=== PATIENT | female | born 1950 | race Hispanic/Latino ===

== ENCOUNTER 2022-03-06 09:38 | Outpatient (CLI) | payer MEDICARE | END 2022-03-06 09:39 | disposition home or self-care (01) | LOC: CSHMAMMO 09:38 | PROVIDERS: ATTEND Family Medicine Sports Medicine | DX: Z12.31 Encounter for screening mammogram for malignant neoplasm of breast (principal); Z13.820 Encounter for screening for osteoporosis; Z78.0 Asymptomatic menopausal state; Z80.3 Family history of malignant neoplasm of breast | CPT/HCPCS: 77063; 77067; 77080 ==

== ENCOUNTER 2022-03-13 12:55 | Outpatient (CLI) | payer MEDICARE ==
[~2022-03-13 12:55] MED LIST: Iopamidol 370 76% 100 ML VIAL ONE
== END 2022-03-13 12:56 | disposition home or self-care (01) ==
LOC: CSHCT 12:55
PROVIDERS: ATTEND Psychiatry & Neurology Neurology
DX: I63.9 Cerebral infarction, unspecified (principal); I77.9 Disorder of arteries and arterioles, unspecified
CPT/HCPCS: 70496; 70498; 82565; Q9967

== ENCOUNTER 2022-07-09 20:34 | Emergency (ER) | payer MEDICARE ==
[2022-07-09 21:02] LABS: Hemoglobin 12.8 g/dL (12.0-15.5); MDiff Complete? YES; Mean Corpuscular HGB CONC 31.9 g/dL (32.0-36.0); Mean Corpuscular Hemoglobin 28.6 pg (27.0-33.0); Mean Corpuscular Volume 89.7 fl (81.6-98.3); Mean Platelet Volume 9.1 fl (7.4-10.4); Platelet Count 307 10x3/uL (150-450); RBC Distribution Width 14.8 % (11.5-14.5); Red Blood Cell (RBC) Count 4.47 10x6/uL (3.90-5.03); White Blood Cell (WBC) Count 20.1 10x3/uL (3.5-10.5)
[2022-07-09 21:03] LABS: Platelet Morphology Comment Appears Adequate
[2022-07-09 21:13] LABS: ALT (SGPT) 27 U/L (8-55); AST (SGOT) 34 U/L (5-34); Albumin 3.8 g/dL (3.4-4.8); Alkaline Phosphatase 177 U/L (40-110); Anion Gap 19 mmol/L (10-20); BUN (Urea Nitrogen) 13 mg/dL (9.8-20.1); Bilirubin, Total 0.5 mg/dL (0.2-1.2); Calc. Creatinine Clearance 0 mL/min (70-130); Calcium 8.9 mg/dL (7.8-10.44); Carbon Dioxide 26 mmol/L (23-31); Chloride 98 mmol/L (98-107); Estimated GFR 64; Globulin 3.3 g/dL (2.4-3.5); Glucose 125 mg/dL (83-110); Potassium 4.9 mmol/L (3.5-5.1); Protein, Total 7.1 g/dL (5.8-8.1); Sodium 138 mmol/L (136-145)
[2022-07-09 21:38] LABS: Band 1 % (5-11); Eosinophils 1 % (0-10); Lymphocytes 5 % (21-51); Monocytes 9 % (0-10); Neutrophil 83 % (42-75); Reactive Lymphocytes 1 % (0-10)
[2022-07-09 21:39] LABS: SARS-CoV-2 NAA Rapid Test Not Detected (NotDetected)
[2022-07-09] MEDS ORDERED: cefTRIAXone\\ROCEPHIN 2 GM VIAL ONE (21:43)
[2022-07-09 21:51] LABS: Actual Bicarbonate (HCO3v) 28 mEq/L (22-28); Base Excess 2.1 mEq/L (-2.0 to +3.0); Calcium, Ionized (venous) 1.08 mmol/L (1.16-1.32); Chloride (VBG) 98 mmol/L (98-106); Hemoglobin (Hb) 12.8 g/dL (11.7-16.1); Potassium (VBG) 4.49 mmol/L (3.70-5.30); Puncture Site Other Site; Sodium 135.6 mmol/L (133-146); pH (venous) 7.37 (7.32-7.43)
[2022-07-09] MEDS ORDERED: Morphine 2 MG/ML VIAL ONE (21:54)
[2022-07-09] MEDS ORDERED: Azithromycin 500 MG VIAL ONE (22:15)
[2022-07-09] MEDS ORDERED: Furosemide 40 MG/4 ML VIAL ONE (22:57)
[2022-07-10 00:18] LABS: Bilirubin Neg (Negative); Blood, Urine 10 (Negative); Glucose, Urine (Dipstick) Normal (Negative); Ketone, Urine Negative (Negative); Leukocyte 25 (Negative); Nitrite Negative (Negative); Protein, Urine (Dipstick) Negative (Neg-Trace); Specific Gravity, Urine 1.005 (1.002-1.036); Urobilinogen Normal mg/dL (Less than 2)
[2022-07-10 00:25] LABS: Bacteria/HPF Rare-Few HPF (None Seen); RBC/HPF 0-3 HPF (0-3)
[2022-07-10 00:31] LABS: Clarity Clear (Clear)
== END 2022-07-10 00:30 | disposition short-term general hospital (02) ==
LOC: CSHERS 20:34
DX: I50.9 Heart failure, unspecified (principal); I48.91 Unspecified atrial fibrillation; E11.9 Type 2 diabetes mellitus without complications; Z86.73 Personal history of transient ischemic attack (TIA), and cerebral infarction without residual deficits; Z20.822 Contact with and (suspected) exposure to COVID-19
CPT/HCPCS: 36415; 71045; 80053; 80162; 81003; 81015; 82805; 83605; 83880; 84484; 85025; 87040; 87077; 87086; 87186; 93005; 96374; 96375; J0456; J0696; J1940; J2270; U0002

== ENCOUNTER 2022-09-04 10:41 | Outpatient (CLI) | payer BC, MEDICARE | END 2022-09-04 10:42 | disposition home or self-care (01) | LOC: CSHRAD 10:41 | PROVIDERS: ATTEND Internal Medicine Gastroenterology | DX: K52.9 Noninfective gastroenteritis and colitis, unspecified (principal) | CPT/HCPCS: 74019 ==

== ENCOUNTER 2022-10-23 08:10 | Outpatient (CLI) | payer MEDICARE ==
[2022-10-23] MEDS ORDERED: Iopamidol 370 76% 100 ML VIAL ONE (15:39)
== END 2022-10-23 08:11 | disposition home or self-care (01) ==
LOC: CSHCT 08:10
PROVIDERS: ATTEND Psychiatry & Neurology Neurology
DX: I63.9 Cerebral infarction, unspecified (principal); I69.398 Other sequelae of cerebral infarction; G93.89 Other specified disorders of brain; I77.89 Other specified disorders of arteries and arterioles
CPT/HCPCS: 70496; 70498; 82565; Q9967

== ENCOUNTER 2023-12-04 08:45 | Outpatient (CLI) | payer MEDICARE | END 2023-12-04 08:46 | disposition home or self-care (01) | LOC: CSHMAMMO 08:45 | PROVIDERS: ATTEND Physician Assistant | DX: Z12.31 Encounter for screening mammogram for malignant neoplasm of breast (principal); Z80.3 Family history of malignant neoplasm of breast | CPT/HCPCS: 77063; 77067 ==

== ENCOUNTER 2024-06-02 12:16 | Emergency (ER) | payer MEDICARE ==
[~2024-06-02 12:16] MED LIST changes: +Iopamidol 300 61% 100 ML VIAL FS ONE; -Iopamidol 370 76% 100 ML VIAL ONE
[2024-06-02 13:35] LABS: #Basophils 0.03 10x3/uL (0.0-0.2); #Eosinphils 0.15 10x3/uL (0.0-0.5); #Neutrophils 5.47 10x3/uL (1.5-8.4); %Basophils 0.4 % (0.0-2.0); %Eosinophils 1.8 % (0.0-6.0); %Lymphocytes 19.8 % (18.0-47.0); %Neutrophils 65.8 % (40.0-75.0); Chloride 98 mmol/L (98-107); Hematocrit 42.2 % (34.9-44.5); Hemoglobin 13.4 g/dL (12.0-15.5); Mean Corpuscular HGB CONC 31.8 g/dL (32.0-36.0); Mean Corpuscular Hemoglobin 28.9 pg (27.0-33.0); Mean Corpuscular Volume 90.9 fL (81.6-98.3); Mean Platelet Volume 9.5 fL (7.4-10.4); Platelet Count 231 10x3/uL (150-450); Potassium 4.8 mmol/L (3.5-5.1); RBC Distribution Width 15.5 % (11.5-14.5); Red Blood Cell (RBC) Count 4.64 10x6/uL (3.90-5.03); Sodium 138 mmol/L (136-145); White Blood Cell (WBC) Count 8.3 10x3/uL (3.5-10.5)
[2024-06-02 13:47] LABS: Troponin I Less than 0.010 ng/mL (< 0.028)
[2024-06-02 14:05] LABS: ALT (SGPT) 14 U/L (8-55); AST (SGOT) 23 U/L (5-34); Albumin 3.2 g/dL (3.4-4.8); Alkaline Phosphatase 159 U/L (40-110); Anion Gap 19 mmol/L (10-20); BUN (Urea Nitrogen) 21 mg/dL (9.8-20.1); Bilirubin, Total 0.6 mg/dL (0.2-1.2); Calc. Creatinine Clearance 0 mL/min (70-130); Calcium 8.8 mg/dL (7.8-10.44); Carbon Dioxide 26 mmol/L (23-31); Estimated GFR 31; Glucose 104 mg/dL (83-110); Lipase 25 U/L (8-78); Magnesium 2.7 mg/dL (1.6-2.6); Protein, Total 6.2 g/dL (5.8-8.1)
[2024-06-02 14:42] LABS: Influenza A by NAA Not Detected (NotDetected); Influenza B by NAA Not Detected (NotDetected); SARS-CoV-2 NAA Rapid Test Not Detected (NotDetected)
[2024-06-02 18:54] LABS: Bilirubin Neg (Negative); Blood, Urine 10 (Negative); Glucose, Urine (Dipstick) Normal (Negative); Ketone, Urine 5 mg/dL (Negative); Leukocyte 100 (Negative); Nitrite Positive (Negative); Protein, Urine (Dipstick) Negative (Neg-Trace); Specific Gravity, Urine 1.005 (1.005-1.030); Urobilinogen Normal mg/dL (Less than 2); pH, Urine 6.5 (5.0-9.0)
[2024-06-02 18:57] LABS: Clarity Hazy (Clear)
[2024-06-02 19:01] LABS: CAUTI Indications for Culture Dysuria,urgency,freq; Squamous Epithelial 0-3 HPF (0-3)
[2024-06-02 19:02] LABS: Bacteria/HPF 3+ HPF (None Seen)
[2024-06-02 19:08] LABS: WBC/HPF 21-50 HPF (0-3)
[2024-06-02 19:10] LABS: Urine Culture Reflex Yes Yes
[2024-06-02] MEDS ORDERED: cefTRIAXone (ROCEPHIN) 1 GM VIAL ONE (19:29)
[2024-06-03 05:22] LABS: Campy jejuni + coli by PCR Negative (Negative); STEC Shiga Toxin 1+2 Negative (Negative); Salmonella spp. by PCR Negative (Negative); Shigella spp + EIEC by PCR Negative (Negative)
== END 2024-06-02 20:22 | disposition home or self-care (01) ==
LOC: CSHERS 12:16
DX: N39.0 Urinary tract infection, site not specified (principal); R19.7 Diarrhea, unspecified; E11.9 Type 2 diabetes mellitus without complications; I50.9 Heart failure, unspecified; I48.91 Unspecified atrial fibrillation; I11.0 Hypertensive heart disease with heart failure; Z86.73 Personal history of transient ischemic attack (TIA), and cerebral infarction without residual deficits; Z79.82 Long term (current) use of aspirin; Z79.899 Other long term (current) drug therapy; Z79.01 Long term (current) use of anticoagulants
CPT/HCPCS: 0240U; 70450; 71045; 74177; 80053; 81001; 83690; 83735; 83880; 84484; 85025; 87086; 87324; 87449; 87505; 93005; J0696; 87077; 87186; 96374; Q9967

== ENCOUNTER 2024-08-03 08:20 | Outpatient (CLI) | payer MEDICARE | END 2024-08-03 08:21 | disposition home or self-care (01) | LOC: CSHULT 08:20 | PROVIDERS: ATTEND Physician Assistant | DX: R32 Unspecified urinary incontinence (principal) | CPT/HCPCS: 76856 ==

== ENCOUNTER 2024-12-23 14:06 | Outpatient (CLI) | payer MEDICARE | END 2024-12-23 14:07 | disposition home or self-care (01) | LOC: CSHMAMMO 14:06 | PROVIDERS: ATTEND Physician Assistant | DX: Z12.31 Encounter for screening mammogram for malignant neoplasm of breast (principal); Z78.0 Asymptomatic menopausal state; Z80.3 Family history of malignant neoplasm of breast | CPT/HCPCS: 77063; 77067; 77080 ==